=== PATIENT | male | born 1985 | race Caucasian/White ===

== ENCOUNTER 2022-09-01 17:13 | Emergency (ER) | payer OTHER, SELFPAY ==
[2022-09-01 17:23] VITALS: BP 150/87; PULSE 77; RESP 16; TEMP 37.2; O2SAT 99; BMI 28.5
--- NOTE | 2022-09-01 17:35 | XR_ITS ---
The [address] [address] Patient Name: LEONOR FLYNN MRN: [id number] date: 1985 Sex: M Assigned Patient Location: ER Current Patient Location: ER Accession/Order Number: [id number] Exam Date: 09/01/2022 17:55 Report Date: 09/01/2022 18:14 At the request of: BETHANY LANZA Procedure: XR shoulder RT min 2V IMAGES REVIEWED: XR shoulder RT min 2V COMPARISON: None available. CLINICAL INDICATION: PAIN FINDINGS/IMPRESSION: Unremarkable radiographic appearance of the right shoulder. Electronically authenticated by: OSCAR HOWARD Date: 09/01/2022 18:14
--- NOTE | 2022-09-01 17:38 | ED.UPPEXIN1 ---
HPI - Extremity Injury (Upper) General Chief Complaint: Extremity Injury, Upper Stated Complaint: UPPER INJURY Time Seen by Provider: 09/01/22 17:38 Source: patient Mode of arrival: walk-in Limitations: no limitations History of Present Illness HPI narrative: Patient presents to emergency department complaining of right shoulder pain. Patient states he started having pain couple of days ago to the right shoulder. Does not recall any direct trauma or injury. He states the pain is worse when he moves his arm. He denies any chest pain, shortness of breath. He denies any fever, chills, cough, upper respiratory infection symptoms. He denies any paresthesias, weakness. He has not taken anything for it at home.The pain is worse to his posterior scapular. Related Data Home Medications Medication Instructions Recorded Confirmed buprenorphine 8 mg-naloxone 2 mg 1 tab sublingual BID 09/01/22 09/01/22 sublingual tablet diazepam 5 mg tablet (Valium) 5 mg PO BID 09/01/22 09/01/22 Previous Rx's Medication Instructions Recorded cyclobenzaprine 10 mg tablet 10 mg PO TID PRN muscle spasm #14 09/01/22 tabs ketorolac 10 mg tablet 10 mg PO Q8H PRN pain 5 days #14 09/01/22 tabs Allergies Allergy/AdvReac Type Severity Reaction Status Date / Time amoxicillin [From Augmentin] AdvReac Vomiting Verified 09/01/22 17:28 clavulanic acid AdvReac Vomiting Verified 09/01/22 17:28 [From Augmentin] varenicline [From Chantix] AdvReac Verified 09/01/22 17:29 Review of Systems ROS Status of ROS 10 or more systems reviewed and unremarkable except as noted in history and below [facility] Medical History (Updated 09/01/22 @ 18:56 by Rhiannon Staton MD) Surgical History (Updated 09/01/22 @ 17:38 by Lizzeth Perdue) Social History Smoking status: Current every day smoker Exam Narrative Exam Narrative: Nurses notes and vital signs reviewed and patient is not hypoxic. General: Nontoxic, Well-appearing and in no apparent distress. Skin: Warm, dry, no pallor noted. No Rash Head: Normocephalic, atraumatic. Neck: Supple, non-tender. Eye: Pupils are equal, round and EOMI. No scleral icterus. Ears, Nose, Mouth, and Throat: TM clear, no posterior oropharynx erythema or nasal mucosal hypertrophy, uvula is mid-line Oral mucosa is moist Cardiovascular: Regular Rate and Rhythm without murmur, gallop or rub. Respiratory: No accessory muscle use or respiratory distress. Lungs are clear to auscultation, no wheezing, rales or rhonchi Chest Wall: no tenderness Back: No midline thoracic or lumbar vertebral tenderness.Tenderness to palpation and spasm to the right rhomboids and scapular border supra scapular area. There is no erythema, no step-offs, no ecchymosis, signs of trauma, or infection. No CVA tenderness Musculoskeletal: normal ROM, no calf or popliteal tenderness, no lower extremity edema/swelling GI: Abdomen is soft, non-distended. Normal bowel sounds. No masses appreciated. No tenderness to palpation. No rebound, guarding, or rigidity noted. Neurological: A&O x4. No cranial nerve dysfunction observed. No truncal ataxia. Moves all extremities. Sensation intact. Psychiatric: Cooperative and interactive. Normal mood and affect. Constitutional Vital Signs - 24 hr 09/01/22 17:23 Temperature 98.9 F Pulse Rate [Monitor] 77 Respiratory Rate 16 Blood Pressure [Right Arm] 150/87 H Pulse Oximetry 99 Oxygen Delivery Method Room Air Course Vital Signs Vital signs: Vital Signs Temperature 98.9 F 09/01/22 17:23 Pulse Rate 77 09/01/22 17:23 Respiratory Rate 16 09/01/22 17:23 Blood Pressure 150/87 H 09/01/22 17:23 Pulse Oximetry 99 09/01/22 17:23 Oxygen Delivery Method Room Air 09/01/22 17:23 Temperature 98.9 F 09/01/22 17:23 Pulse Rate 77 09/01/22 17:23 Respiratory Rate 16 09/01/22 17:23 Blood Pressure 150/87 H 09/01/22 17:23 Pulse Oximetry 99 09/01/22 17:23 Oxygen Delivery Method Room Air 09/01/22 17:23 MDM - Extremity Injury (Upper) MDM Narrative Medical decision making narrative: Shoulder x-ray was done and is unremarkable. Patient's history and physical are consistent with upper back muscle spasms strain. Patient given an injection of Toradol and Norflex. He'll be given a prescription for Toradol and Flexeril. Patient's symptoms improved. He is to follow-up with primary care doctor as an outpatient. At this time the patient is without objective evidence of an acute process requiring hospitalization or inpatient management. The patient has remained hemodynamically stable. No additional indication for emergent studies at this time. I answered all questions. Discussed discharge instructions including standard anticipatory guidance and what should prompt a return to the emergency department, including if they get worse are not getting better or develops any new or concerning symptoms. I've given them specific time frame in which to follow-up, and who to follow-up with. The patient demonstrates understanding. Patient is nontoxic and stable for discharge with outpatient follow-up. This note was created with the assistance of a speech recognition program. Although the intention is to generate documents that actually reflects the content of the visit, no guarantees can be provided that every mistake has been identified and corrected by editing. Differential Diagnosis Differential diagnosis: Likely dislocation of shoulder Discharge Plan Discharge Chief Complaint: Extremity Injury, Upper Clinical Impression: Spasm of thoracic back muscle Patient Disposition: Home, Self-Care Time of Disposition Decision: 18:56 Mode of Transportation: Private Vehicle Prescriptions / Home Meds: New ketorolac 10 mg tablet 10 mg PO Q8H PRN (Reason: pain) 5 Days Qty: 14 0RF cyclobenzaprine 10 mg tablet 10 mg PO TID PRN (Reason: muscle spasm) Qty: 14 0RF No Action diazepam [Valium] 5 mg tablet 5 mg PO BID buprenorphine-naloxone 8-2 mg tablet, sublingual 1 tab SUBLINGUAL BID Instructions: Muscle Spasm (ED) Stand Alone Forms: Portal Instructions Referrals: REBEKAH WINSLOW [Primary Care Provider] - 1 week Discharge Date/Time: 09/01/22 19:24
--- NOTE | 2022-09-01 17:56 | XR_ITS ---
[address] [address] Patient Name: LEONOR FLYNN MRN: [id number] date: 1985 Sex: M Assigned Patient Location: ER Current Patient Location: ED.MAIN Accession/Order Number: [id number] Exam Date: 09/01/2022 18:15 Report Date: 09/01/2022 19:02 At the request of: BETHANY LANZA Procedure: XR ribs RT min 3V w CXR1V Ribs EXAM: XR ribs RT min 3V w CXR1V HISTORY: pain COMPARISON: None. TECHNIQUE: Chest, single view. Right rib series with 5 images obtained. FINDINGS: Lungs/pleura: No consolidation, effusion, or pneumothorax. Bones: No acute abnormality identified. IMPRESSION: No acute displaced rib fracture. No acute process. Electronically authenticated by: JUAN YORK Date: 09/01/2022 19:02
[2022-09-01] MEDS: KETOROLAC TROMETHAMINE 60 MG/2 ML VIAL IVP (18:51)
[2022-09-01] MEDS: ORPHENADRINE 60 MG/ 2 ML VIAL IV (18:51)
== END 2022-09-01 19:24 | disposition home or self-care (01) ==
PROVIDERS: Emergency Provider Emergency Medicine; PCP Family Medicine
DX: M62.830 Muscle spasm of back (principal); Z79.899 Other long term (current) drug therapy; F17.210 Nicotine dependence, cigarettes, uncomplicated
CPT/HCPCS: 71101; 73030; 96374; 96375; 99284

== ENCOUNTER 2022-09-06 06:25 | Emergency (ER) | payer OTHER, SELFPAY ==
[2022-09-06 06:29] VITALS: BP 153/101; PULSE 85; RESP 18; TEMP 36.4; O2SAT 100; BMI 27.0
[2022-09-06 06:32] VITALS: PULSE 85; RESP 12
[2022-09-06 06:34] VITALS: BP 153/101; PULSE 77; PULSE 81; PULSE 85; RESP 21; RESP 22; RESP 26; O2SAT 100
--- NOTE | 2022-09-06 06:35 | XR_ITS ---
The [address] [address] Patient Name: LEONOR FLYNN MRN: [id number] date: 1985 Sex: M Assigned Patient Location: ER Current Patient Location: ED.MAIN Accession/Order Number: [id number] Exam Date: 09/06/2022 06:45 Report Date: 09/06/2022 07:18 At the request of: ISRAEL HENDERSON Procedure: XR chest 1V EXAM: XR chest 1V HISTORY: Pain; technologist notes state right sided chest pain and dizziness starting this morning. COMPARISON: None. TECHNIQUE: AP erect portable view of the chest performed. FINDINGS: The trachea is normal. The heart size is normal. The mediastinal and hilar shadows are normal. The lung volumes are normal. There is no consolidation or infiltrate. There is no pleural effusion or pulmonary vascular congestion. There is no pneumothorax or osseous abnormality. IMPRESSION: Unremarkable AP erect portable chest radiograph. Electronically authenticated by: HERMINIO BTEH Date: 09/06/2022 07:18
--- NOTE | 2022-09-06 06:35 | ECG_ITS ---
The [facility] Test Date: 2022-09-06 Pat Name: Linwood Moreno Department: Room: - Gender: Male [employer]: : 1985 Requested By: Order Number: [id number] Reading MD: BENEDICT GUAJARDO Measurements Intervals Leo Rate: 73 P: -11 DC: 144 QRS: 31 QRSD: 114 T: 30 QT: 394 QTc: 420 Interpretive Statements 1100 Sinus rhythm 2320 Nonspecific intraventricular conduction delay 9130 borderline ECG No previous ECG available for comparison Electronically Signed On 09-07-2022 6:30:43 EDT by BENEDICT GUAJARDO
[2022-09-06 06:41] VITALS: BP 153/99; PULSE 72; PULSE 74; PULSE 76; RESP 21; RESP 23; RESP 32
[2022-09-06 06:48] LABS: Basophils Absolute Auto 0.1 10^3/uL (0.0-0.1); Basophils Percent Auto 0.7 % (0.2-2.0); Eosinophils Absolute Auto 0.2 10^3/uL (0.0-0.7); Eosinophils Percent Auto 1.9 % (0.9-7.0); Hematocrit 37.9 % (42.0-54.0); Hemoglobin 11.7 g/dL (14.0-18.0); Immature Granulocytes Abs Auto 0.02 10^3/uL (0.00-0.03); Immature Granulocytes Pct Auto 0.2 % (0.0-0.5); Lymphocytes Absolute Auto 4.1 10^3/uL (1.2-3.8); Lymphocytes Percent Auto 41.7 % (20.5-60.0); Mean Corpuscular HGB Conc 30.9 g/dL (29.9-35.2); Mean Corpuscular Hemoglobin 26.4 pg (25.9-34.0); Mean Corpuscular Volume 85.6 fL (80.0-94.0); Mean Platelet Volume 9.5 fL (9.5-13.5); Monocytes Absolute Auto 0.4 10^3/uL (0.3-0.8); Monocytes Percent Auto 4.5 % (1.7-12.0); Platelet Count 333 10^3/uL (150-450); Red Blood Count 4.43 10^6/uL (4.70-6.10); Red Cell Distribution Width 17.6 % (11.0-15.0); White Blood Count 9.9 10^3/uL (4.0-11.0)
[2022-09-06 07:04] LABS: Alanine Aminotransferase 15 U/L (16-63); Albumin Globulin Ratio 1.2; Albumin Level 3.9 g/dL (3.4-5.0); Alkaline Phosphatase 83 U/L (46-116); Anion Gap 10.8; Aspartate Amino Transferase 15 U/L (15-37); BUN Creatinine Ratio 11.2; Bilirubin Total 0.3 mg/dL (0.2-1.0); Calcium 9.1 mg/dL (8.5-10.1); Carbon Dioxide 27.4 mmol/L (21.0-32.0); Chloride 104 mmol/L (98-107); Estimated GFR (African America >60 (>=60); Estimated GFR (Non-African Ame >60 (>=60); Globulin 3.3 g/dL; Glucose 105 mg/dL (74-106); Potassium 3.2 mmol/L (3.5-5.1); Sodium 139 mmol/L (136-145); Total Protein 7.2 g/dL (6.4-8.2); Troponin I High Sensitivity 7.4 pg/mL (4.0-76.1)
[2022-09-06 07:16] VITALS: BP 143/86; PULSE 78; PULSE 84; RESP 21; RESP 26
[2022-09-06 07:30] VITALS: BP 149/93
--- NOTE | 2022-09-06 07:32 | CT_ITS ---
[address] [address] Patient Name: LEONOR FLYNN MRN: [id number] date: 1985 Sex: M Assigned Patient Location: ER Current Patient Location: ER Accession/Order Number: [id number] Exam Date: 09/06/2022 07:40 Report Date: 09/06/2022 08:21 At the request of: BETHANY LANZA Procedure: CT angio chest EXAMINATION: CT angio chest HISTORY: CP ; acute right side chest pain COMPARISON: No relevant comparison available. TECHNIQUE: Multi-planar CT images were created with IV contrast. Axial, Coronal, and Sagittal images. Dose reduction techniques were achieved by using automated exposure control and/or adjustment of mA and/or kV according to patient size and/or use of iterative reconstruction technique. 3-D reconstruction was performed on a separate workstation. FINDINGS: VASCULATURE: No pulmonary embolism or abnormal opacity. LUNGS: Mild haziness within posterior lung bases, likely atelectasis. 7 mm nodule within posterior lateral left costophrenic angle. PLEURA: No mass, effusion, or pneumothorax. CATHY: Small calcified and noncalcified lymph nodes, likely chronic granulomatous disease. MEDIASTINUM: No mass or adenopathy. CARDIAC: No enlargement, pericardial effusion, or pericardial thickening. AORTA: No aneurysm or dissection. CHEST WALL: No mass or axillary adenopathy. BONES: No bone lesion or fracture. LIMITED ABDOMEN: No suspicious findings. Limited images of the upper abdomen. OTHER: Negative. IMPRESSION: 1. No pulmonary embolism. 2. Mild bibasilar atelectasis versus infiltrates; atelectasis is favored. 3. No appreciable acute findings to account for patient's symptoms. Electronically authenticated by: TRAN JACOBS Date: 09/06/2022 08:21
--- NOTE | 2022-09-06 08:32 | ED_ITS ---
pt was evaluated by Dr Staton not by me HPI - Chest Pain General Chief Complaint: Chest Pain Time Seen by Provider: 09/06/22 06:35 Source: patient Mode of arrival: Wheelchair Limitations: no limitations History of Present Illness HPI narrative: pt presents to the emergency department complaining of right-sided chest pain. Patient states yesterday his had intermittent chest pain to the right side worse with movement. He states anytime he moves his arms the chest pain worsens. He was seen 5 days ago with right thoracic paraspinal muscle pain and spasms. He was discharged home on Toradol, and Flexeril. The patient denies any shortness of breath, palpitations, dizziness, lightheadedness. He states that medication was helping the back but now he has the anterior chest pain and wants to be eval uated. He denies any trauma. He denies any fever, chills, or cough. He denies any abdominal pain. He denies any nausea, vomiting, diarrhea, constipation. He has no previous history of lung disease or thrombotic embolic disease. Denies any history of coronary artery disease. Related Data Home Medications Medication Instructions Recorded Confirmed buprenorphine 8 mg-naloxone 2 mg 1 tab sublingual BID 09/01/22 09/01/22 sublingual tablet diazepam 5 mg tablet (Valium) 5 mg PO BID 09/01/22 09/01/22 Previous Rx's Medication Instructions Recorded cyclobenzaprine 10 mg tablet 10 mg PO TID PRN muscle spasm #14 09/01/22 tabs ketorolac 10 mg tablet 10 mg PO Q8H PRN pain 5 days #14 09/01/22 tabs Allergies Allergy/AdvReac Type Severity Reaction Status Date / Time amoxicillin [From Augmentin] AdvReac Vomiting Verified 09/01/22 17:28 clavulanic acid AdvReac Vomiting Verified 09/01/22 17:28 [From Augmentin] varenicline [From Chantix] AdvReac Verified 09/01/22 17:29 Review of Systems ROS Status of ROS 10 or more systems reviewed and unremarkable except as noted in history and below [facility] Medical History (Updated 09/06/22 @ 08:40 by Rhiannon Staton MD) Surgical History (Updated 09/01/22 @ 17:38 by Lizzeth Perdue) Social History Smoking status: Current every day smoker Exam Narrative Exam Narrative: Nurses notes and vital signs reviewed and patient is not hypoxic. General: Nontoxic, Well-appearing and in no apparent distress. Skin: Warm, dry, no pallor noted. No Rash Head: Normocephalic, atraumatic. Neck: Supple, non-tender. Eye: Pupils are equal, round and EOMI. No scleral icterus. Ears, Nose, Mouth, and Throat: TM clear, no posterior oropharynx erythema or nasal mucosal hypertrophy, uvula is mid-line Oral mucosa is moist Cardiovascular: Regular Rate and Rhythm without murmur, gallop or rub. Respiratory: No accessory muscle use or respiratory distress. Lungs are clear to auscultation, no wheezing, rales or rhonchi Chest Wall: The right rib 4 and 5 tenderness to palpation. There is no crepitance, no step-offs, no ecchymosis. No signs of trauma, or infection. Back: No midline thoracic or lumbar vertebral tenderness. No CVA tenderness Musculoskeletal: normal ROM, no calf or popliteal tenderness, no lower e xtremity edema/swelling GI: Abdomen is soft, non-distended. Normal bowel sounds. No masses appreciated. No tenderness to palpation. No rebound, guarding, or rigidity noted. Neurological: A&O x4. No cranial nerve dysfunction observed. No truncal ataxia. Moves all extremities. Sensation intact. Psychiatric: Cooperative and interactive. Normal mood and affect. Constitutional Vital Signs - 24 hr 09/06/22 06:29 09/06/22 06:32 09/06/22 06:34 Temperature 97.5 F L Pulse Rate 85 85 Pulse Rate [Monitor Right] 85 Respiratory Rate 18 12 22 Blood Pressure 153/101 H Blood Pressure [Left Arm] 153/101 H Pulse Oximetry 100 Oxygen Delivery Method Room Air 09/06/22 06:34 09/06/22 06:34 09/06/22 06:41 Temperature Pulse Rate 77 81 76 Pulse Rate [Monitor Right] Respiratory Rate 26 H 21 23 Blood Pressure 153/101 H 153/99 H Blood Pressure [Left Arm] Pulse Oximetry 100 Oxygen Delivery Method 09/06/22 06:41 09/06/22 06:41 09/06/22 07:16 Temperature Pulse Rate 72 74 84 Pulse Rate [Monitor Right] Respiratory Rate 21 32 H 26 H Blood Pressure 153/99 H 153/99 H 143/86 H Blood Pressure [Left Arm] Pulse Oximetry Oxygen Delivery Method 09/06/22 07:16 09/06/22 07:30 Temperature Pulse Rate 78 Pulse Rate [Monitor Right] Respiratory Rate 21 Blood Pressure 143/86 H 149/93 H Blood Pressure [Left Arm] Pulse Oximetry Oxygen Delivery Method Course Vital Signs Vital signs: Vital Signs Temperature 97.5 F L 09/06/22 06:29 Pulse Rate 85 09/06/22 06:29 Respiratory Rate 18 09/06/22 06:29 Blood Pressure 153/101 H 09/06/22 06:29 Pulse Oximetry 100 09/06/22 06:29 Oxygen Delivery Method Room Air 09/06/22 06:29 Temperature 97.5 F L 09/06/22 06:29 Pulse Rate 78 09/06/22 07:16 Respiratory Rate 21 09/06/22 07:16 Blood Pressure 149/93 H 09/06/22 07:30 Pulse Oximetry 100 09/06/22 06:34 Oxygen Delivery Method Room Air 09/06/22 06:29 MDM - Chest Pain MDM Narrative Medical decision making narrative: Patient had laboratory studies, chest x-ray, EKG and CPK which were all unremarkable. Discussed with the patient musculoskeletal etiology is a possibility. He is to take prednisone. And follow-up with primary care doctor. At this time the patient is without objective evidence of an acute process requiring hospitalization or inpatient management. The patient has remained hemo dynamically stable. No additional indication for emergent studies at this time. I answered all questions. Discussed discharge instructions including standard anticipatory guidance and what should prompt a return to the emergency department, including if they get worse are not getting better or develops any new or concerning symptoms. I've given them specific time frame in which to follow-up, and who to follow-up with. The patient demonstrates understanding. Patient is nontoxic and stable for discharge with outpatient follow-up. This note was created with the assistance of a speech recognition program. Although the intention is to generate documents that actually reflects the content of the visit, no guarantees can be provided that every mistake has been identified and corrected by editing. Lab Data Attestation: I reviewed the patient's lab results. Labs: Lab Results 09/06/22 Range/Units 06:35 WBC 9.9 (4.0-11.0) 10^3/uL RBC 4.43 L (4.70-6.10) 10^6/uL Hgb 11.7 L (14.0-18.0) g/dL Hct 37.9 L (42.0-54.0) % MCV 85.6 (80.0-94.0) fL MCH 26.4 (25.9-34.0) pg MCHC 30.9 (29.9-35.2) g/dL RDW 17.6 H (11.0-15.0) % Plt Count 333 (150-450) 10^3/uL MPV 9.5 (9.5-13.5) fL Neut % (Auto) 51.0 (43.0-75.0) % Lymph % (Auto) 41.7 (20.5-60.0) % Hart % (Auto) 4.5 (1.7-12.0) % Eos % (Auto) 1.9 (0.9-7.0) % Baso % (Auto) 0.7 (0.2-2.0) % Neut # (Auto) 5.0 (1.4-6.5) 10^3/uL Lymph # (Auto) 4.1 H (1.2-3.8) 10^3/uL Hart # (Auto) 0.4 (0.3-0.8) 10^3/uL Eos # (Auto) 0.2 (0.0-0.7) 10^3/uL Baso # (Auto) 0.1 (0.0-0.1) 10^3/uL Abs Immat Gran (auto) 0.02 (0.00-0.03) 10^3/uL Imm/Tot Granulo (auto) 0.2 (0.0-0.5) % Sodium 139 (136-145) mmol/L Potassium 3.2 L (3.5-5.1) mmol/L Chloride 104 (98-107) mmol/L Carbon Dioxide 27.4 (21.0-32.0) mmol/L Anion Gap 10.8 BUN 10.0 (7.0-18.0) mg/dL Creatinine 0.89 (0.70-1.30) mg/dL Est GFR ( Amer) >60 (>=60) Est GFR (Non-Af Amer) >60 (>=60) BUN/Creatinine Ratio 11.2 Glucose 105 (74-106) mg/dL Calcium 9.1 (8.5-10.1) mg/dL Total Bilirubin 0.3 (0.2-1.0) mg/dL AST 15 (15-37) U/L ALT 15 L (16-63) U/L Alkaline Phosphatase 83 (46-116) U/L Troponin I High Sens 7.4 (4.0-76.1) pg/mL Total Protein 7.2 (6.4-8.2) g/dL Albumin 3.9 (3.4-5.0) g/dL Globulin 3.3 g/dL Albumin/Globulin Ratio 1.2 Discharge Plan Discharge Chief Complaint: Chest Pain Clinical Impression: Chest pain Patient Disposition: Home, Self-Care Time of Disposition Decision: 08:39 Condition: Good Mode of Transportation: Private Vehicle Prescriptions / Home Meds: No Action diazepam [Valium] 5 mg tablet 5 mg PO BID buprenorphine-naloxone 8-2 mg tablet, sublingual 1 tab SUBLINGUAL BID ketorolac 10 mg tablet 10 mg PO Q8H PRN (Reason: pain) 5 Days Qty: 14 0RF cyclobenzaprine 10 mg tablet 10 mg PO TID PRN (Reason: muscle spasm) Qty: 14 0RF Instructions: Chest Pain (ED) Additional Instructions: prednisone 50 mg daily Stand Alone Forms: Portal Instructions Referrals: REBEKAH WINSLOW [Primary Care Provider] - 1 week Discharge Date/Time: 09/06/22 08:49
== END 2022-09-06 08:49 | disposition home or self-care (01) ==
PROVIDERS: Emergency Medicine; Emergency Provider Emergency Medicine; PCP Family Medicine
DX: R07.9 Chest pain, unspecified (principal); F17.210 Nicotine dependence, cigarettes, uncomplicated
CPT/HCPCS: 36415; 71045; 71275; 80053; 84484; 85025; 93005; 99285; Q9967